=== PATIENT | male | born 1955 | race Caucasian/White ===

== ENCOUNTER 2023-03-09 23:08 | Emergency (ER) | payer SELFPAY ==
[~2023-03-09] VITALS: Ht 185.4 cm; Wt 70.4 kg
[2023-03-09 23:12] VITALS: BP 132/96
[2023-03-10] MEDS ORDERED: TAM75C PO (01:54)
== END 2023-03-10 00:49 | disposition home or self-care (01) ==
LOC: ER 23:09
DX: R50.9 Fever, unspecified (principal); B34.9 Viral infection, unspecified; R61 Generalized hyperhidrosis
CPT/HCPCS: 87502; 87503; 99283